=== PATIENT | male | born 1975 | race Caucasian/White ===

== ENCOUNTER 2016-08-09 11:17 | Emergency (ER) | payer OTHER ==
[2016-08-09 11:35] VITALS: BP 159/66; PULSE 85; RESP 18; TEMP 98; O2SAT 97
[2016-08-09] MEDS ORDERED: OXYCODONE/APAP 5/325MG PREPACK#4 BTL TAKEHOME ONE (11:42)
[2016-08-09] MEDS ORDERED: predniSONE 20 MG TAB PO ONE (11:42)
--- NOTE | 2016-08-09 11:46 | UCPHY ---
H & P Patient Type: Established Chief Complaint Nursing Narrative: c/o lt hip/sciatic pain for several yrs - last week walking alot - on flight home lt leg/foot went numb Time Seen by Provider: 08/09/16 11:27 HPI/ROS: CHIEF COMPLAINT: Low back pain HISTORY OF PRESENT ILLNESS: Patient is a 40-year-old man who comes to the urgent care complaining low back pain radiating down his left leg laterally to his foot. He has had this off and on for several years. His primary performed plain x-rays that did not show any abnormality other than degenerative disc disease. He states that his pain has been flaring over the last 2 days since a family trip to [place]. He does not have any weakness or numbness. He is able to walk. No saddle anesthesia or bowel or bladder abnormalities. No recent trauma. No fevers or infections. REVIEW OF SYSTEMS: Constitutional: denies: chills, fever, recent illness, recent injury EENTM: denies: blurred vision, double vision, nose congestion Respiratory: denies: cough, shortness of breath Cardiac: denies: chest pain, irregular heart rate, lightheadedness, palpitations Gastrointestinal/Abdominal: denies: abdominal pain, diarrhea, nausea, vomiting, blood streaked stools Genitourinary: denies: dysuria, frequency, hematuria, pain Musculoskeletal: See HPI Skin: denies: lesions, rash, jaundice, bruising Neurological: denies: headache, numbness, paresthesia, tingling, dizziness, weakness Hematologic/Lymphatic: denies: blood clots, easy bleeding, easy bruising Immunologic/allergic: denies: HIV/AIDS, transplant EXAM: GENERAL: Well-appearing, well-nourished and in no acute distress. HEAD: Atraumatic, normocephalic. EYES: Pupils equal round and reactive to light, extraocular movements intact, sclera anicteric, conjunctiva are normal. ENT: TMs normal, nares patent, oropharynx clear without exudates. Moist mucous membranes. NECK: Normal range of motion, supple without lymphadenopathy or JVD. LUNGS: Breath sounds clear to auscultation bilaterally and equal. No wheezes rales or rhonchi. HEART: Regular rate and rhythm without murmurs, rubs or gallops. ABDOMEN: Soft, nontender, normoactive bowel sounds. No guarding, no rebound. No masses appreciated. BACK: Low back pain, no tenderness or step-offs. EXTREMITIES: Pain radiating down left leg laterally. No visible swelling or deformity. Normal range of motion, no pitting or edema. No clubbing or cyanosis. NEUROLOGICAL: Cranial nerves II through XII grossly intact. Normal speech, normal gait. 5/5 strength, normal movement in all extremities, normal sensation , normal reflexes PSYCH: Normal mood, normal affect. SKIN: Warm, dry, normal turgor, no visible rashes or lesions. Source: Patient Exam Limitations: No limitations - Personal History Current Tetanus Diphtheria and Acellular Pertussis (TDAP): Yes - Medical/Surgical History Hx Asthma: No Hx Chronic Respiratory Disease: No Hx Diabetes: No Hx Cardiac Disease: No Hx Renal Disease: No Hx Cirrhosis: No Hx Alcoholism: No Hx HIV/AIDS: No Hx Splenectomy or Spleen Trauma: No Other PMH: r rotator cuff/vasectomy - Family History Significant Family History: No pertinent family hx - Social History Smoking Status: Never smoked Alcohol Use: Sober Drug Use: None Constitutional: Initial Vital Signs Temperature (C) 36.6 C 08/09/16 11:31 Heart Rate 85 08/09/16 11:31 Respiratory Rate 18 08/09/16 11:31 Blood Pressure 159/66 H 08/09/16 11:31 O2 Sat (%) 97 08/09/16 11:31 O2 Delivery Mode Room Air Allergies/Adverse Reactions: No Known Allergies Allergy (Unverified 12/26/14 15:17) Home Medications: Medication Instructions Recorded oxyCODONE/APAP 5/325 [Percocet 1 tab PO Q6PRN PRN #15 tab 12/26/14 5/325 (*)] oxyCODONE/APAP 5/325 [Percocet 1 - 2 tab PO Q4H PRN #20 tab 08/09/16 5/325 (*)] predniSONE 60 mg PO DAILY #15 tab 08/09/16 Medical Decision Making ED Course/Re-evaluation: Patient has a past history of sciatica with the consistent current history and no objective neurologic deficits. I will treat him with steroids and pain medication and refer him to a bilingual customer service specialist for MRI imaging and further treatment. He agrees with this plan and declines further workup or testing at this time. Differential Diagnosis: Partial list of the Differential diagnosis considered include but were not limited to; musculoskeletal pain, sciatica, fracture and although unlikely based on the history and physical exam, I also considered infection, spinal cord compression, multiple sclerosis, stroke. I discussed these differential diagnoses and the plan with the patient as well as the usual and expected course. The patient understands that the diagnosis is provisional and that in medicine we are not always correct and that further workup is often warranted. Usual and customary warnings were given. All of the patient's questions were answered. The patient was instructed to return to the emergency department should the symptoms at all worsen or return, otherwise to followup with the physician as we discussed. Departure - Departure Disposition: Home, Routine, Self-Care Clinical Impression: Sciatica Qualifiers: Laterality: left Qualifier Code: (M54.32) Sciatica, left side Condition: Fair Instructions: Sciatica (ED) Referrals: Angel Morocho MD [Primary Care Provider] - As per Instructions Ankit Hunt MD [Medical Doctor] - As per Instructions Prescriptions: oxyCODONE/APAP 5/325 [Percocet 5/325 (*)] 1 - 2 tab PO Q4H PRN #20 tab PRN Reason: Pain, Severe predniSONE 60 mg PO DAILY #15 tab - PQRS PQRS Measurement: Not applicable
== END 2016-08-09 12:06 | disposition home or self-care (01) ==
LOC: CED 11:17
DX: M54.32 Sciatica, left side (principal)
CPT/HCPCS: 99214-PO; G0463-PO